=== PATIENT | female | born 1945 | race Caucasian/White ===

== ENCOUNTER 2016-11-15 10:05 | Outpatient (CLI) | payer MEDICARE, OTHER | END 2016-11-15 10:06 | disposition home or self-care (01) | DX: R60.9 Edema, unspecified (principal) ==

== ENCOUNTER 2016-12-20 10:47 | Outpatient (CLI) | payer MEDICARE, OTHER | END 2016-12-20 10:48 | disposition home or self-care (01) | DX: D70.9 Neutropenia, unspecified (principal); R80.9 Proteinuria, unspecified ==

== ENCOUNTER 2017-01-02 10:29 | Outpatient (CLI) | payer MEDICARE, OTHER | END 2017-01-02 10:30 | disposition home or self-care (01) | DX: R80.9 Proteinuria, unspecified (principal); E87.1 Hypo-osmolality and hyponatremia; I50.32 Chronic diastolic (congestive) heart failure; D47.2 Monoclonal gammopathy; N05.9 Unspecified nephritic syndrome with unspecified morphologic changes ==

== ENCOUNTER 2017-06-10 09:15 | Outpatient (CLI) | payer MEDICARE, OTHER ==
[2017-06-10 13:45] LABS: BASOPHILS % (AUTO) 0.5 %; EOSINOPHILS # (AUTO) 0.1 10^3/uL (0.0-0.7); EOSINOPHILS % (AUTO) 1.1 %; HCT - HEMATOCRIT 39.6 % (37.0-47.0); HGB - HEMOGLOBIN 13.2 g/dL (12.0-16.0); LYMPHOCYTES # (AUTO) 1.7 10^3/uL (1.5-3.5); MEAN CORPUSCULAR HEMOGLOBIN 31.1 pg (27.0-31.0); MEAN CORPUSCULAR HGB CONC 33.5 g/dL (32.0-36.0); MEAN CORPUSCULAR VOLUME 92.9 fL (81.0-99.0); MEAN PLATELET VOLUME 8.2 fL (7.9-10.8); MONOCYTES # (AUTO) 0.8 10^3/uL (0.0-1.0); MONOCYTES % (AUTO) 8.3 %; NEUTROPHILS # (AUTO) 6.7 10^3/uL (1.5-6.6); NEUTROPHILS % (AUTO) 72.1 %; NUCLEATED RED BLOOD CELLS AUTO 0.1 /100WBC; RED BLOOD COUNT 4.26 10^6/uL (4.20-5.40); RED CELL DISTRIBUTION WIDTH 14.4 % (12.0-15.0); UNCORRECTED WHITE BLOOD COUNT 9.3 x10^3/uL; WHITE BLOOD COUNT 9.3 x10^3/uL (4.8-10.8)
[2017-06-10 14:01] LABS: ALBUMIN/GLOBULIN RATIO 1.1 (1.0-2.2); BILIRUBIN,TOTAL 0.6 mg/dL (0.2-1.0); CALCIUM 9.1 mg/dL (8.5-10.3); CREATININE 1.9 mg/dL (0.4-1.0); POTASSIUM 4.1 mmol/L (3.5-5.0)
== END 2017-06-10 09:16 | disposition home or self-care (01) ==
LOC: LAB.WCP 09:15
PROVIDERS: ATTEND Physician Assistant Medical
DX: I10 Essential (primary) hypertension (principal); E53.8 Deficiency of other specified B group vitamins; L02.91 Cutaneous abscess, unspecified
CPT/HCPCS: 36415; 80053; 82607; 85025; 87070; 87205

== ENCOUNTER 2017-12-24 18:04 | Outpatient (CLI) | payer MEDICARE, OTHER | END 2017-12-24 18:05 | disposition critical access hospital (66) | LOC: EMS 18:04 | PROVIDERS: ATTEND Surgery | DX: S09.90XA Unspecified injury of head, initial encounter (principal); W10.8XXA Fall (on) (from) other stairs and steps, initial encounter; Y93.01 Activity, walking, marching and hiking; Y92.008 Other place in unspecified non-institutional (private) residence as the place of occurrence of the external cause | CPT/HCPCS: A0425; A0427 ==

== ENCOUNTER 2017-12-24 18:36 | Emergency (ER) | payer MEDICARE, OTHER ==
--- NOTE | 2017-12-24 18:41 | ED Physician Documentation ---
PD HPI HEAD INJURY - Stated complaint Stated Complaint: GLF - History obtained from History obtained from: Patient, EMS - History of Present Illness Mechanism of head injury: Other (This is a very demented 72-year-old woman who is supposed to be on Coumadin but per software development leader report has not been taking her medications any lately was going up the stairs and fell forward hitting her left chest wall and left side of the face against the steps. Because of her dementia no significant history is available from the patient, the is on the way but not available on the patient's arrival.) Review of Systems Unable to obtain: Confused, Dementia PD ED PE NORMAL - Vitals Vital signs reviewed: Yes - General General: Other (Alert, pleasant, oriented to person only.) - HEENT HEENT: PERRL, EOMI, Other (There is a small bruise lateral to the left orbit, no other facial bony tenderness.) - Neck Neck: Supple, no meningeal sign, No bony TTP - Cardiac Cardiac: RRR, No murmur - Respiratory Respiratory: No respiratory distress, Other (Very tender left low chest wall ribs.) - Abdomen Abdomen: Soft, Non tender - Extremities Extremities: Other (Significant pitting pedal edema that looks chronic) - Neuro Neuro: internet site designer 2-12 intact Eye Opening: Spontaneous Motor: Obeys Commands Verbal: Confused GCS Score: 14 - Psych Psych: Normal mood, Normal affect Results - Vitals Vitals: Vital Signs - 24 hr 12/24/17 18:50 Temperature 36.9 C Heart Rate 90 Respiratory 17 Rate Blood Pressure 144/48 H O2 Saturation 99 Oxygen O2 Source Room air - Labs Labs: Laboratory Tests 12/24/17 12/24/17 12/24/17 18:40 18:40 18:40 WBC 11.1 H RBC 3.88 L Hgb 11.5 L Hct 35.6 L MCV 91.6 MCH 29.6 MCHC 32.3 RDW 15.3 H Plt Count 368 MPV 7.1 L Neut # 9.2 H Lymph # 1.0 L [place] # 0.7 Eos # 0.2 Baso # 0.1 Absolute Nucleated RBC 0.00 Nucleated RBC % 0.0 PT 12.3 INR 1.1 Sodium 136 Potassium 3.6 Chloride 102 Carbon Dioxide 25 Anion Gap 9.0 BUN 14 Creatinine 1.2 H Estimated GFR (MDRD) 44 L Glucose 106 H Calcium 8.5 Total Bilirubin 0.5 AST 22 ALT 11 Alkaline Phosphatase 122 H Total Protein 7.0 Albumin 3.2 Globulin 3.8 Albumin/Globulin Ratio 0.8 L Lipase 32 - Rads (name of study) CT Head/Cspine/Chest Radiology: EMP read contemporaneously (Degenerative and age-related changes without evidence of acute trauma) PD MEDICAL DECISION MAKING - ED course ED course: 72-year-old woman with dementia who is noncompliant with medication is brought in as a modified trauma because she is on Coumadin however she is currently not taking it. Relevant imaging is negative and her INR is normal. Departure - Departure Disposition: 01 Home, Self Care Clinical Impression: Non compliance w medication regimen Fall Qualifiers: Encounter type: initial encounter Qualified Code(s): W19.XXXA - Unspecified fall, initial encounter Dementia Qualifiers: Dementia type: unspecified type Dementia behavioral disturbance: without behavioral disturbance Qualified Code(s): F03.90 - Unspecified dementia without behavioral disturbance Contusion of left chest wall Qualifiers: Encounter type: initial encounter Qualified Code(s): S20.212A - Contusion of left front wall of thorax, initial encounter Head injury Qualifiers: Encounter type: initial encounter Qualified Code(s): S09.90XA - Unspecified injury of head, initial encounter Hypertension Qualifiers: Hypertension type: essential hypertension Qualified Code(s): I10 - Essential ( primary) hypertension Condition: Good Record reviewed to determine appropriate education?: Yes Instructions: ED Contusion Chest Wall Comments: Tylenol as needed for pain. Try to get her to take her medications, return if worse. Follow-up with your doctor, next available appointment.
[2017-12-24 18:46] LABS: BASOPHILS # (AUTO) 0.1 10^3/uL (0.0-0.1); BASOPHILS % (AUTO) 0.7 %; EOSINOPHILS # (AUTO) 0.2 10^3/uL (0.0-0.7); EOSINOPHILS % (AUTO) 1.7 %; HGB - HEMOGLOBIN 11.5 g/dL (12.0-16.0); LYMPHOCYTES % (AUTO) 8.8 %; MEAN CORPUSCULAR HEMOGLOBIN 29.6 pg (27.0-31.0); MEAN CORPUSCULAR HGB CONC 32.3 g/dL (32.0-36.0); MEAN CORPUSCULAR VOLUME 91.6 fL (81.0-99.0); MEAN PLATELET VOLUME 7.1 fL (7.9-10.8); MONOCYTES # (AUTO) 0.7 10^3/uL (0.0-1.0); MONOCYTES % (AUTO) 6.3 %; NEUTROPHILS # (AUTO) 9.2 10^3/uL (1.5-6.6); NEUTROPHILS % (AUTO) 82.5 %; PLT - PLATELET COUNT 368 10^3/uL (130-450); RED BLOOD COUNT 3.88 10^6/uL (4.20-5.40); RED CELL DISTRIBUTION WIDTH 15.3 % (12.0-15.0); WHITE BLOOD COUNT 11.1 x10^3/uL (4.8-10.8)
[2017-12-24 18:53] LABS: INR 1.1 (0.8-1.2); PT - PROTHROMBIN TIME 12.3 secs (9.9-12.6)
[2017-12-24 18:57] LABS: ALBUMIN 3.2 g/dL (3.2-5.5); ALBUMIN/GLOBULIN RATIO 0.8 (1.0-2.2); BILIRUBIN,TOTAL 0.5 mg/dL (0.2-1.0); CALCIUM 8.5 mg/dL (8.5-10.3); CREATININE 1.2 mg/dL (0.4-1.0)
--- NOTE | 2017-12-24 19:12 | CT Report ---
EXAM: CT HEAD EXAM DATE: 12/24/2017 06:50 PM. CLINICAL HISTORY: Fall, pain. COMPARISON: 04/13/2015. TECHNIQUE: Multiaxial CT images were obtained from the foramen magnum to the vertex. Reformats: Coron al. IV contrast: None. In accordance with CT protocol optimization, one or more of the following dose reduction techniques w ere utilized for this exam: automated exposure control, adjustment of mA and/or KV based on patient s ize, or use of iterative reconstructive technique. FINDINGS: Parenchyma: No intraparenchymal hemorrhage. No evidence of mass, midline shift, or CT findings of acu te infarction. Wright-white differentiation is distinct. Diffuse chronic microangiopathic white matter changes. Extraaxial Spaces: Normal for age. No subdural or epidural collections. Ventricles: The ventricles and cortical sulci are enlarged, consistent with age-related tissue loss. Sinuses and orbits: Imaged paranasal sinuses, orbits, and mastoids show no significant abnormality. Bones: Unremarkable. Other: None. IMPRESSION: Generalized age-related cortical atrophic changes without evidence of acute intracranial abnormality. [facility] Referring Provider Line: [phone] SITE ID: [id number]
--- NOTE | 2017-12-24 19:16 | CT Report ---
EXAM: CT CERVICAL SPINE WITHOUT CONTRAST DATE: 12/24/2017 07:03 PM. HISTORY: Fall, pain. COMPARISONS: None. TECHNIQUE: Thin-section axial images were acquired of the cervical spine without contrast. Post-proce ssing: Coronal and sagittal reformats. Other: None. In accordance with CT protocol optimization, one or more of the following dose reduction techniques w ere utilized for this exam: automated exposure control, adjustment of mA and/or KV based on patient s ize, or use of iterative reconstructive technique. FINDINGS: Alignment: No scoliosis. Grade 1 degenerative anterolisthesis of C7. No significant listhesis. Bones: No fracture or bone lesion. Interspace Levels/Facets: Disk space narrowing at C4-C5, C5-C6, and C6-C7. Generalized degenerative c hanges. Musculature: Unremarkable. Other: The paravertebral and prevertebral soft tissues are unremarkable. The lung apices are clear. IMPRESSION: Degenerative changes. No acute disease. [facility] Referring Provider Line: [phone] SITE ID: [id number]
--- NOTE | 2017-12-24 19:22 | CT Report ---
EXAM: CT CHEST EXAM DATE: 12/24/2017 07:03 PM. CLINICAL HISTORY: Fall, pain. COMPARISONS: Chest radiograph dated 06 July 2016. TECHNIQUE: Routine helical CT imaging was performed through the chest. IV contrast: None. Reconstruct ions: Coronal and sagittal. In accordance with CT protocol optimization, one or more of the following dose reduction techniques w ere utilized for this exam: automated exposure control, adjustment of mA and/or KV based on patient s ize, or use of iterative reconstructive technique. FINDINGS: Lungs/Pleura: No localized infiltrate, consolidation, effusion, or pneumothorax. Mediastinum: Normal heart size. No pericardial effusion. At least three-vessel coronary artery calcif ications. No lymphadenopathy. Bones: Degenerative changes. Old upper endplate compression fracture of L1. Visualized Abdomen: Status post cholecystectomy. Other: None. IMPRESSION: Chronic findings. No acute disease. [facility] Referring Provider Line: [phone] SITE ID: [id number]
[2017-12-24 19:36] VITALS: BP 118/48
== END 2017-12-24 19:48 | disposition home or self-care (01) ==
LOC: ED 18:36
DX: F03.90 Unspecified dementia, unspecified severity, without behavioral disturbance, psychotic disturbance, mood disturbance, and anxiety (principal); S20.212A Contusion of left front wall of thorax, initial encounter; S09.90XA Unspecified injury of head, initial encounter; S05.12XA Contusion of eyeball and orbital tissues, left eye, initial encounter; W10.9XXA Fall (on) (from) unspecified stairs and steps, initial encounter; I10 Essential (primary) hypertension; Z91.14 Patient's other noncompliance with medication regimen
CPT/HCPCS: 36415; 70450; 71250; 72125; 80053; 83690; 85025; 85610; 99283

== ENCOUNTER 2018-01-06 08:59 | Outpatient (CLI) | payer MEDICARE, OTHER | END 2018-01-06 09:00 | disposition critical access hospital (66) | LOC: EMS 08:59 | PROVIDERS: ATTEND Surgery | DX: R53.1 Weakness (principal); R41.0 Disorientation, unspecified; M25.552 Pain in left hip; W08.XXXA Fall from other furniture, initial encounter; Y92.009 Unspecified place in unspecified non-institutional (private) residence as the place of occurrence of the external cause | CPT/HCPCS: A0425; A0427 ==

== ENCOUNTER 2018-01-06 09:24 | Emergency (ER) | payer MEDICARE, OTHER ==
--- NOTE | 2018-01-06 10:07 | ED Physician Documentation ---
History of Present Illness - Stated complaint Stated Complaint: GLF - History obtained from History obtained from: Patient, Family, EMS - History of Present Illness Timing: How many days ago (3) - Additonal information Additional information: 72-year-old female reportedly fell to the ground 3 days ago and has been on the ground since. The report from the medics is that the patient's fed her some hamburger on the floor the first night and she is now refused to eat or drink. He also found her medications in the garbage. The patient has advanced dementia and she is of very little help in the history. does indicate that he is not able to care for his at home. He is not present on initial evaluation . 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 - Present Medications Home Medications: Ambulatory Orders Medication Instructions Recorded Confirmed Lorazepam [Ativan] 1 mg PO Q6HR PRN #30 tablet 01/06/18 - Allergies Allergies/Adverse Reactions: Allergies Allergy/AdvReac Type Severity Reaction Status Date / Time Unable to Assess Allergy Verified 01/06/18 10:57 - Social History Does the pt smoke?: No Smoking Status: Former smoker Does the pt drink ETOH?: Yes Does the pt have substance abuse?: No - Immunizations Immunizations are current?: No Immunizations: TDAP >10years/unknown - POLST Patient has POLST: Yes PD ED PE NORMAL - Vitals Vital signs reviewed: Yes - General General: No acute distress, Well developed/nourished - HEENT HEENT: Atraumatic, PERRL, EOMI - Neck Neck: Supple, no meningeal sign, No bony TTP - Cardiac Cardiac: Other (irregularly irregular with rapid rate (160)) - Respiratory Respiratory: No respiratory distress, Clear bilaterally - Abdomen Abdomen: Soft, Non tender - Back Back: No CVA TTP, No spinal TTP - Derm Derm: Normal color, Warm and dry, No rash - Extremities Extremities: No deformity, No edema - Neuro Neuro: No motor deficit, No sensory deficit, Normal speech Eye Opening: Spontaneous Motor: Obeys Commands Verbal: Inappropriate GCS Score: 13 - Psych Psych: Normal mood, Normal affect Results - Vitals Vitals: Vital Signs - 24 hr 01/06/18 01/06/18 01/06/18 09:27 10:59 13:23 Temperature 36.9 C Heart Rate 171 H 166 H 147 H Respiratory 22 18 23 Rate Blood Pressure 130/74 113/88 H 93/77 O2 Saturation 97 96 96 01/06/18 15:33 Temperature Heart Rate 93 Respiratory 20 Rate Blood Pressure 122/50 L O2 Saturation 95 Oxygen O2 Source Room air - EKG (time done) 0937 Rate: Rate (enter#) (167) Rhythm: Atrial fibrillation QRS: Low voltage Ischemia: ST depression (rate related) Compare to prior EKG: Old EKG unavailable Computer interpretation: Agree with computer - Labs Labs: Laboratory Tests 01/06/18 01/06/18 01/06/18 10:13 10:13 10:13 WBC 15.5 H RBC 4.37 Hgb 13.1 Hct 39.7 MCV 90.8 MCH 30.0 MCHC 33.1 RDW 15.5 H Plt Count 365 MPV 7.9 Neut # 13.1 H Lymph # 1.2 L [place] # 1.1 H Eos # 0.1 Baso # 0.0 Absolute Nucleated RBC 0.00 Nucleated RBC % 0.0 PT 12.0 INR 1.1 Sodium 136 Potassium 3.7 Chloride 99 L Carbon Dioxide 25 Anion Gap 12.0 BUN 18 Creatinine 0.9 Estimated GFR (MDRD) 62 L Glucose 101 H Calcium 8.6 Total Bilirubin 1.3 H AST 43 H ALT 17 Alkaline Phosphatase 136 H Total Creatine Kinase 559 H CK-MB (CK-2) Troponin I Total Protein 7.9 Albumin 3.1 L Globulin 4.8 H Albumin/Globulin Ratio 0.6 L Lipase 23 Urine Color Urine Clarity Urine pH Ur Specific [place] Urine Protein Urine Glucose (UA) Urine Ketones Urine Occult Blood Urine Nitrite Urine Bilirubin Urine Urobilinogen Ur Leukocyte Esterase Urine RBC Urine WBC Ur Squamous Epith Cells Urine Bacteria Ur Microscopic Review Urine Culture Comments 01/06/18 01/06/18 10:13 10:45 WBC RBC Hgb Hct MCV MCH MCHC RDW Plt Count MPV Neut # Lymph # [place] # Eos # Baso # Absolute Nucleated RBC Nucleated RBC % PT INR Sodium Potassium Chloride Carbon Dioxide Anion Gap BUN Creatinine Estimated GFR (MDRD) Glucose Calcium Total Bilirubin AST ALT Alkaline Phosphatase Total Creatine Kinase CK-MB (CK-2) 3.8 Troponin I < 0.04 Total Protein Albumin Globulin Albumin/Globulin Ratio Lipase Urine Color YELLOW Urine Clarity HAZY Urine pH 6.5 Ur Specific [place] 1.015 Urine Protein NEGATIVE Urine Glucose (UA) NEGATIVE Urine Ketones TRACE Urine Occult Blood MODERATE H Urine Nitrite NEGATIVE Urine Bilirubin NEGATIVE Urine Urobilinogen 1 (NORMAL) Ur Leukocyte Esterase NEGATIVE Urine RBC 0-5 Urine WBC 0-3 Ur Squamous Epith Cells RARE Squamous Urine Bacteria Many H Ur Microscopic Review INDICATED Urine Culture Comments INDICATED - Rads (name of study) 2 view chest Radiology: Prelim report reviewed (Impression: No acute cardiopulmonary decompensation radiographically.), EMP read indepedently, See rad report left hip Radiology: Prelim report reviewed (Impression: No apparent fracture or acute findings identified. Suggest follow-up if persistent clinical suspicion.), EMP read indepedently, See rad report Procedures - IVC sono (time) 6986 Bedside IVC sono: IVC measures (cm) (1.1), IVC collapsed c insp (cm) (complete) , Dehydration (est 2 liters (500ml already given)) PD MEDICAL DECISION MAKING - ED course Complexity details: reviewed old records, reviewed results, re-evaluated patient , considered differential, d/w patient, d/w family ED course: 72-year-old female who was failing at home with advanced dementia has given up. She has stopped taking her medication is now refusing fluids as well as food. Her attends to the side of the patient after she has been given intravenous fluids here in the emergency department and intravenous diltiazem. No further workup or treatment of this lady as he would like to pursue hospice. He has worked on getting a palliative treatment consult and this has not happened yet and he would now like to consult for hospice. appliance worker is consulted and assisted in administrating follow-up required for this. The patient presents to the emergency department dehydrated and with a heart rate of 170. She appears to be tolerating the A. fib with RVR and has not developed failure. She is hydrated in the emergency department her heart rate remained high and she was given 10 mg of diltiazem and subsequently given 20 mg of diltiazem either of these doses appear to make much difference in her heart rate. Subsequently her came to the department and we discontinued our resuscitative efforts and the patient spontaneously converted. She does have some mild rhabdo as expected but otherwise appears to have tolerated 3 days on the floor. KELLEY Hyman the patient's primary is consult in the case and she will make a referral for hospice. She agrees that this is an option for the patient. Robbins catheter was placed in the emergency department and we will leave this in place. No further workup is performed no further treatment is done. Departure - Departure Disposition: 01 Home, Self Care Clinical Impression: Non compliance w medication regimen, Dehydration, Atrial fibrillation with RVR Dementia Qualifiers: Dementia type: Alzheimer's disease Alzheimer's disease onset: early-onset Dementia behavioral disturbance: without behavioral disturbance Qualified Code(s ): G30.0 - Alzheimer's disease with early onset Contusion of left hip Qualifiers: Encounter type: initial encounter Qualified Code(s): S70.02XA - Contusion of left hip, initial encounter Condition: Stable Instructions: Life Support Tx Choices, ED Dehydration Follow-Up: Ruth Hyman PA-C [Primary Care Provider] - Prescriptions: Lorazepam [Ativan] 1 mg PO Q6HR PRN #30 tablet PRN Reason: Anxiety
[2018-01-06] MEDS ORDERED: DILTIAZEM 50 MG/10 ML VIAL IVP ONE ×2 (10:09→11:45)
[2018-01-06] MEDS ORDERED: SODIUM CHLORIDE 0.9% 1,000 ML IV ONE (10:09)
[2018-01-06 10:16] LABS: BASOPHILS % (AUTO) 0.1 %; EOSINOPHILS # (AUTO) 0.1 10^3/uL (0.0-0.7); EOSINOPHILS % (AUTO) 0.8 %; HGB - HEMOGLOBIN 13.1 g/dL (12.0-16.0); LYMPHOCYTES # (AUTO) 1.2 10^3/uL (1.5-3.5); LYMPHOCYTES % (AUTO) 7.6 %; MEAN CORPUSCULAR HGB CONC 33.1 g/dL (32.0-36.0); MEAN CORPUSCULAR VOLUME 90.8 fL (81.0-99.0); MEAN PLATELET VOLUME 7.9 fL (7.9-10.8); MONOCYTES # (AUTO) 1.1 10^3/uL (0.0-1.0); MONOCYTES % (AUTO) 7.4 %; NEUTROPHILS # (AUTO) 13.1 10^3/uL (1.5-6.6); NEUTROPHILS % (AUTO) 84.1 %; PLT - PLATELET COUNT 365 10^3/uL (130-450); RED BLOOD COUNT 4.37 10^6/uL (4.20-5.40); RED CELL DISTRIBUTION WIDTH 15.5 % (12.0-15.0); WHITE BLOOD COUNT 15.5 x10^3/uL (4.8-10.8)
[2018-01-06 10:34] LABS: TROPONIN I < 0.04 ng/mL (<0.49)
[2018-01-06 10:36] LABS: ALBUMIN 3.1 g/dL (3.2-5.5); ALBUMIN/GLOBULIN RATIO 0.6 (1.0-2.2); BILIRUBIN,TOTAL 1.3 mg/dL (0.2-1.0); CALCIUM 8.6 mg/dL (8.5-10.3); CREATINE KINASE MB 3.8 ng/mL (0.6-6.3); CREATININE 0.9 mg/dL (0.4-1.0); TOTAL PROTEIN 7.9 g/dL (6.7-8.2)
[2018-01-06 11:05] LABS: BILIRUBIN,URINE NEGATIVE (NEGATIVE); GLUCOSE, URINE (UA) NEGATIVE (NEGATIVE); KETONES,URINE (UA) TRACE mg/dL (NEGATIVE); LEUKOCYTE ESTERASE, URINE NEGATIVE (NEGATIVE); NITRITE,URINE NEGATIVE (NEGATIVE); OCCULT BLOOD,URINE MODERATE (NEGATIVE); PH,URINE 6.5 PH (5.0-7.5); PROTEIN,URINE NEGATIVE (NEGATIVE); UROBILINOGEN,URINE 1 (NORMAL) E.U./dL (NORMAL)
[2018-01-06 11:07] LABS: CLARITY,URINE HAZY (CLEAR)
[2018-01-06 11:18] LABS: BACTERIA,URINE Many /HPF (None Seen); RBC,URINE 0-5 /HPF (0-5); SQUAMOUS EPITHELIAL CELL,UR RARE Squamous (<= Few)
[2018-01-06 11:34] LABS: INR 1.1 (0.8-1.2)
[2018-01-06] MEDS ORDERED: diltiaZEM INJ 5 MG/ML VIAL IVP ONE (12:00)
--- NOTE | 2018-01-06 12:28 | XRAY Preliminary Report ---
Exam: XR CHEST 2 VIEW X-RAY IMPRESSION: 1. No acute cardiopulmonary decompensation radiographically. [facility] SITE ID: [id number]
--- NOTE | 2018-01-06 12:28 | XRAY Report ---
EXAM: CHEST RADIOGRAPHY EXAM DATE: 01/06/2018 11:17 AM. CLINICAL HISTORY: Tachycardia. COMPARISON: [facility] network diagnostic support specialist view of CT chest 12/24/2017. TECHNIQUE: 2 views. FINDINGS: Lungs/Pleura: No focal opacities or vascular congestion. No pleural effusion or pneumothorax. Normal volumes. Lobular contour of right hemidiaphragm consistent with mild diaphragmatic penetration. Mediastinum: Normal heart size. Mildly tortuous calcified aorta. Other: No acute fracture evident. IMPRESSION: 1. No acute cardiopulmonary decompensation radiographically. [facility] Referring Provider Line: [phone] SITE ID: [id number]
--- NOTE | 2018-01-06 12:33 | XRAY Preliminary Report ---
Exam: XR HIP W/PELVIS 2-3V LT IMPRESSION: 1. No apparent fracture or acute findings identified. Suggest follow-up if persistent clinical suspic ion. [facility] SITE ID: [id number]
--- NOTE | 2018-01-06 12:34 | XRAY Report ---
EXAM: LEFT HIP AND PELVIS RADIOGRAPHY EXAM DATE: 01/06/2018 11:17 AM. HISTORY: Left hip pain after fall. COMPARISONS: AP medical writer view of CT abdomen pelvis 02/09/2014. TECHNIQUE: 2 views including AP pelvis. FINDINGS: Bones: No apparent fracture or bone lesion. Joints: No subluxation. Minor age-related DGR changes of the left hip. Intact pubic symphysis and david ssly symmetrical SI joints. Other: Surgical clips in the pelvis and visualized lower abdomen. IMPRESSION: 1. No apparent fracture or acute findings identified. Suggest follow-up if persistent clinical suspic ion. [facility] Referring Provider Line: [phone] SITE ID: [id number]
[2018-01-06 18:22] VITALS: BP 101/79
== END 2018-01-06 19:11 | disposition home or self-care (01) ==
LOC: EDUNIT# → ED 09:24
DX: S70.02XA Contusion of left hip, initial encounter (principal); W18.39XA Other fall on same level, initial encounter; Y92.009 Unspecified place in unspecified non-institutional (private) residence as the place of occurrence of the external cause; E86.0 Dehydration; G30.9 Alzheimer's disease, unspecified; F02.80 Dementia in other diseases classified elsewhere, unspecified severity, without behavioral disturbance, psychotic disturbance, mood disturbance, and anxiety; I48.91 Unspecified atrial fibrillation; T50.996A Underdosing of other drugs, medicaments and biological substances, initial encounter; Z91.128 Patient's intentional underdosing of medication regimen for other reason; Z87.891 Personal history of nicotine dependence
CPT/HCPCS: 36415; 51702; 71046; 80053; 81001; 81003; 82550; 82553; 83690; 84484; 85025; 85610; 87040; 87086; 93005; 96361; 96374; 96375; 99284

== ENCOUNTER 2018-01-06 19:09 | Outpatient (CLI) | payer MEDICARE, OTHER | END 2018-01-06 19:10 | disposition home or self-care (01) | LOC: EMS 19:09 | PROVIDERS: ATTEND Surgery | DX: F03.90 Unspecified dementia, unspecified severity, without behavioral disturbance, psychotic disturbance, mood disturbance, and anxiety (principal); Z74.01 Bed confinement status | CPT/HCPCS: A0425; A0428 ==